=== PATIENT | female | born 1990 | race African-American/Black ===

== ENCOUNTER 2020-02-16 10:20 | Emergency (ER) | payer OTHER ==
[~2020-02-16] VITALS: Ht 165.1 cm; Wt 77.5 kg
[2020-02-16] MEDS ORDERED: PRENMIS3 PO (10:29)
[2020-02-16 11:34] LABS: BASO % 0.3 % (0.0-1.0); EOS % 0.3 % (0.0-3.0); HEMATOCRIT 36.9 % (36.0-47.0); HEMOGLOBIN 11.7 g/dl (12.0-15.5); LYMPH % 25.5 % (24.0-44.0); MEAN CORPUSCULAR HEMOGLOBIN 30.5 pg (27.0-33.0); MEAN CORPUSCULAR HGB CONC 31.7 g/dl (32.0-36.5); MEAN CORPUSCULAR VOLUME 96.1 fl (80.0-96.0); MONO # 0.9 10^3/uL (0.0-0.8); MONO % 11.2 % (0.0-5.0); NEUTROPHILS # 4.9 10^3/uL (1.5-8.5); NEUTROPHILS % 62.3 % (36.0-66.0); PLATELET COUNT, AUTOMATED 305 10^3/uL (150-450); RED BLOOD COUNT 3.84 10^6/uL (4.00-5.40); WHITE BLOOD COUNT 7.9 10^3/uL (4.0-10.0)
--- NOTE | 2020-02-16 12:26 | REP ---
INDICATION: RLQ pain, 6 weeks preg. COMPARISON: None. TECHNIQUE: Transabdominal and transvaginal scanning. FINDINGS: Transabdominal and transvaginal sonography demonstrates a intrauterine gestational sac in the fundal endometrium. No yolk sac or embryonic pole is seen. Decidual reaction is less than complete. There is hypoechoic material surrounding the sac. By mean sac size diameter of 7.1 mm this would correspond with a gestational age estimate of 5 weeks 2 days. There is moderate amount of free fluid in the cul-de-sac. Uterine dimensions are 9.1 x 5.8 x 6.2 cm. A normal right ovary is seen measuring 1.9 x 1.3 x 1.6 cm. Doppler flow is present in the right ovary, resistive index 0.52. The left ovary measures 4.0 x 2.2 x 3.0 cm. There is Doppler flow, resistive index 0.46. There is a 2.2 x 1.5 x 2.2 cm hypoechoic cystic area consistent with a hemorrhagic cyst or corpus luteum cyst. IMPRESSION: Small gestational sac within the uterine endometrium without evidence of pole or yolk sac. Five weeks 2 days size by mean sac size diameter but viability cannot be confirmed. There is some free fluid in the cul-de-sac. Clinical and possibly sonographic follow-up advised. <Electronically signed by Howard Mercado > 02/16/20 [id number]
[2020-02-16 12:37] LABS: ALBUMIN 3.9 GM/DL (3.2-5.2); ALT/SGPT 23 U/L (12-78); BILIRUBIN,DIRECT 0.1 MG/DL (0.0-0.2); BILIRUBIN,TOTAL 0.5 MG/DL (0.2-1.0); BLOOD UREA NITROGEN 9 MG/DL (7-18); CARBON DIOXIDE LEVEL 26 MEQ/L (21-32); CHLORIDE LEVEL 106 MEQ/L (98-107); CREATININE FOR GFR 0.63 MG/DL (0.55-1.30); GLOMERULAR FILTRATION RATE > 60.0 (>60); GLUCOSE, FASTING 71 MG/DL (70-100); HCG, SERUM QUANTITATIVE 4711 MIU/ML; LIPASE 68 U/L (73-393); POTASSIUM SERUM 4.1 MEQ/L (3.5-5.1); SODIUM LEVEL 139 MEQ/L (136-145); TOTAL PROTEIN 7.7 GM/DL (6.4-8.2)
[2020-02-16 14:33] VITALS: BP 113/57
== END 2020-02-16 15:02 | disposition left against medical advice (07) ==
LOC: M ED 10:20
DX: O99.891 Other specified diseases and conditions complicating pregnancy (principal); R10.31 Right lower quadrant pain; Z3A.01 Less than 8 weeks gestation of pregnancy

== ENCOUNTER → 2020-03-01 | Outpatient (CLI) | payer OTHER ==
[~2020-03-01] MED LIST: PRENMIS3 PO
--- NOTE | 2020-03-01 12:54 | REP ---
INDICATION: VIABILITY; RULE OUT ECTOPIC;UNKNOWN LINDA. COMPARISON: Comparison sonography February 16, 2020.. TECHNIQUE: Transabdominal and transvaginal scanning is performed. FINDINGS: Scanning demonstrates a single living intrauterine gestation today. The embryonic pole measures 9 mm in crown-rump length. This corresponds with a gestational age estimate is 6 weeks 6 days. heart rate is recorded at 147 beats per minute. There is a 2.3 cm complex cystic area in the left ovary consistent with corpus luteum. There is a 3.1 x 2.0 x 2.5 cm hypoechoic area inferior to the gestational sac which may be a subchorionic hemorrhage. No other finding. IMPRESSION: Viable single intrauterine gestation at 6 weeks 6 days by crown-rump length. LINDA by sonography October 19, 2020. 2.5 x 3.1 x 2.0 cm hyperechoic area inferior to the gestational sac may be a small subchorionic hemorrhage. A 2.3 cm left ovarian corpus luteum is seen. <Electronically signed by Howard Mercado > 03/01/20 [id number]
== END ==
LOC: M RAD 12:01
PROVIDERS: ATTEND Registered Nurse Maternal Newborn
DX: Z34.81 Encounter for supervision of other normal pregnancy, first trimester (principal); Z3A.01 Less than 8 weeks gestation of pregnancy

== ENCOUNTER 2020-08-15 09:00 | Emergency (ER) | payer OTHER ==
[~2020-08-15] VITALS: Ht 162.6 cm; Wt 87.1 kg
[2020-08-15] MEDS ORDERED: TRAZ-252 PO (09:08)
[2020-08-15 11:43] VITALS: BP 137/62
== END 2020-08-15 11:53 | disposition home or self-care (01) ==
LOC: M ED 09:00
DX: O99.343 Other mental disorders complicating pregnancy, third trimester (principal); Z3A.31 31 weeks gestation of pregnancy; Z79.899 Other long term (current) drug therapy; Z88.2 Allergy status to sulfonamides; Z88.8 Allergy status to other drugs, medicaments and biological substances

== ENCOUNTER 2020-10-02 09:38 | Inpatient (IN) | payer OTHER ==
[~2020-10-02] VITALS: Ht 165.1 cm; Wt 89.3 kg
[~2020-10-02 09:38] MED LIST changes: +TRAZ-252 PO
--- NOTE | 2020-10-02 10:41 | REP ---
INDICATION: DECREASED MOVEMENT COMPARISON: None. TECHNIQUE: Transabdominal obstetrical ultrasound with color Doppler evaluation. FINDINGS: Examination demonstrates a single live intrauterine in cephalic presentation. motion is identified by technologist. Placenta is noted posterior and grade 2 without evidence for placenta previa or abruption. Amniotic fluid volume is normal. Selected gestational age: 37 weeks 6 days with LINDA 10/17/2020. FHR equals 133 beats per minute. TIFFANIE: 7.7 cm (7.3-24.0) Biophysical profile score: 8/8 Umbilical artery SD ratio: 1.97 (1.55-3.37) IMPRESSION: 1. Amniotic fluid volume is lower limits of normal. 2. Biophysical profile score 8/8 <Electronically signed by Miguel Swartz > 10/02/20 [id number]
[2020-10-02] MEDS ORDERED: BICITRA 30ML SOLN UDC PO ONE (12:40)
[2020-10-02] MEDS ORDERED: ceFAZolin SOD 2 GM in IV 1 EA IV ONE (12:40)
[2020-10-02] MEDS ORDERED: LR 1,000 ML IV ONE ×2 (12:40→22:15)
[2020-10-02] MEDS ORDERED: ACETAMINOPHEN 650 MG SUPP PR SCH (12:50)
[2020-10-02] MEDS ORDERED: BUPIVACAINE HCL 0.25% 10ML VIAL SC SCH (12:50)
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
[2020-10-02 13:03] VITALS: BP 107/64
[2020-10-02 13:15] LABS: HEMATOCRIT 38.1 % (36.0-47.0); HEMOGLOBIN 12.2 g/dl (12.0-15.5); MEAN CORPUSCULAR HEMOGLOBIN 29.8 pg (27.0-33.0); MEAN CORPUSCULAR VOLUME 93.2 fl (80.0-96.0); PLATELET COUNT, AUTOMATED 229 10^3/uL (150-450); RED BLOOD COUNT 4.09 10^6/uL (4.00-5.40); WHITE BLOOD COUNT 7.6 10^3/uL (4.0-10.0)
[2020-10-02] MEDS ORDERED: IRON27TA2 PO (13:21)
[2020-10-02] MEDS ORDERED: LR 1,000 ML IV SCH ×2 (13:40→19:05)
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
[2020-10-02] MEDS ORDERED: BUPIVACAINE HCL 0.25% 10ML VIAL SC ONE (16:05)
[2020-10-02] MEDS ORDERED: ACETAMINOPHEN 650 MG SUPP PR ONE (16:05)
[2020-10-02] MEDS ORDERED: METOCLOPRAMIDE INJ 10MG/2ML VIAL (J2765 PER 1) IV PRN (17:16)
[2020-10-02] MEDS ORDERED: NALOXONE INJ 0.4MG/1ML VIAL (J2310 PER 1MG) IV PRN ×2 (17:16)
[2020-10-02] MEDS ORDERED: ONDANSETRON 4MG/2ML VIAL IV PRN ×2 (17:16→19:05)
[2020-10-02] MEDS ORDERED: NALBUPHINE HCL 10 MG/ML AMP (J2300) IV PRN ×2 (17:16→19:05)
[2020-10-02] MEDS ORDERED: OXYTOCIN 30 UNITS IN 0.9% NaCl 500ML IV BAG (J2590) As Ordered ONE ×2 (17:39→18:46)
[2020-10-02] MEDS ORDERED: METOCLOPRAMIDE INJ 10MG/2ML VIAL (J2765 PER 1) As Ordered ONE (17:39)
[2020-10-02] MEDS ORDERED: PHENYLephrine 500MCG 5ML (100MCG/ML) SYRINGE As Ordered ONE (17:39)
[2020-10-02] MEDS ORDERED: MORPHINE PRES-FREE INJ 10 MG/10 ML VIAL (J2274) As Ordered ONE (17:39)
[2020-10-02] MEDS ORDERED: ONDANSETRON 4MG/2ML VIAL As Ordered ONE (17:39)
[2020-10-02] MEDS ORDERED: dexameTHASONE 4 MG/ML 1ML VIAL (J1100 PER 1MG) As Ordered ONE (17:39)
[2020-10-02] MEDS ORDERED: ePHEDrine SULFATE 25 MG/5 ML(5MG/ML) SYRINGE As Ordered ONE (17:39)
[2020-10-02] MEDS ORDERED: KETOROLAC 60MG 2ML VIAL As Ordered ONE ×2 (17:39→17:50)
[2020-10-02] MEDS ORDERED: OXYTOCIN INJ 10 UNITS/ML VIAL (J2590) As Ordered ONE (17:42)
[2020-10-02] MEDS ORDERED: ACETAMINOPHEN 1000MG 100ML IV BTL (OFIRMEV) (J0131 PER 10MG) As Ordered ONE (17:48)
[2020-10-02 18:09] LABS: CORD GAS ABE A -7.4; CORD GAS ABE V -8.6; CORD GAS HCO3 A 23.8 MEQ/L; CORD GAS HCO3 V 21.3 MEQ/L; CORD GAS O2 SAT V 24.7 %; CORD GAS PCO2 A 77.1 mmHg; CORD GAS PCO2 V 62.6 mmHg; CORD GAS PH A 7.108 UNITS; CORD GAS PH V 7.149 UNITS; CORD GAS PO2 A 14.9 mmHg; CORD GAS PO2 V 17.6 mmHg; CORD GAS SBC A 16.8 MEQ/L; CORD GAS SBC V 16.1 MEQ/L; CORD GAS TCO2 A 26.2 MEQ/L; CORD GAS TCO2 V 23.2 MEQ/L
[2020-10-02] MEDS ORDERED: fentaNYL 100 MCG/2 ML INJECTION (J3010) IV PRN (19:05)
[2020-10-02] MEDS ORDERED: oxyCODONE 5MG TAB PO PRN (19:05)
[2020-10-02] MEDS: LR 1,000 ML IV SCH (19:20)
[2020-10-02] MEDS ORDERED: RHOGAM 300 MCG (1500 IU) INJ (J2790) IM SCH (19:20)
[2020-10-02] MEDS ORDERED: SIMETHICONE 80MG CHEW TAB PO PRN (19:20)
[2020-10-02] MEDS ORDERED: MEASLES,MUMPS,RUBELLA VACCINE INJ (MMR-II) (90707) SC SCH (19:20)
[2020-10-02] MEDS ORDERED: OXYTOCIN DRIP 30 UNITS in IV 1 EA IV SCH (19:25)
[2020-10-02 20:15] VITALS: BP 123/79
[2020-10-02 20:45] VITALS: BP 121/76
[2020-10-02 21:15] VITALS: BP 125/71
[2020-10-02 22:15] VITALS: BP 122/62
[2020-10-02] MEDS: diphenhydrAMINE 50MG/ML VIAL (J1200) IV PRN (22:22)
--- NOTE | 2020-10-02 22:55 | IPN ---
PROGRESS NOTE DATE: 10/02/2020 SUBJECTIVE: This patient requested circumcision of her male infant. After discussing the risks and benefits of circumcision, the medical, the nonmedical indications, the penile block and aftercare, expressed understanding of penile block, aftercare and bleeding, signed a consent form. All questions were answered. A 20-minute discussion. We await the clearance by the admissions evaluator.
[2020-10-02 23:15] VITALS: BP 118/75
[2020-10-02] MEDS: KETOROLAC 30 MG/ML 1ML VIAL IV SCH (23:41)
[2020-10-03] VITALS (7 sets, daily range): BP systolic 105–127; BP diastolic 58–75
[2020-10-03] MEDS: LR 1,000 ML IV SCH ×4 (01:48→19:20)
[2020-10-03] MEDS: KETOROLAC 30 MG/ML 1ML VIAL IV SCH ×2 (05:42→12:24)
[2020-10-03] MEDS: PRENATAL VITAMINS CHEWABLE TABLET PO SCH (07:50)
[2020-10-03] MEDS: diphenhydrAMINE 50MG/ML VIAL (J1200) IV PRN (07:51)
[2020-10-03 08:20] LABS: HEMATOCRIT 31.8 % (36.0-47.0); HEMOGLOBIN 10.3 g/dl (12.0-15.5); MEAN CORPUSCULAR HGB CONC 32.4 g/dl (32.0-36.5); MEAN CORPUSCULAR VOLUME 95.8 fl (80.0-96.0); PLATELET COUNT, AUTOMATED 203 10^3/uL (150-450); RED BLOOD COUNT 3.32 10^6/uL (4.00-5.40); WHITE BLOOD COUNT 13.2 10^3/uL (4.0-10.0)
--- NOTE | 2020-10-03 11:20 | IPN ---
PROGRESS NOTE DATE: 10/03/2020 SUBJECTIVE: This lady is a 29-year-old 3, now para 3 who was admitted because of a decreased movement of 48 hours, oligohydramnios, and a low threshold BPP of 8 out of 8. She had a repeat section and was noted to have a uterine dehiscence throughout the entire lower incision site. On her first postop day we noticed that diuresis was occurring. She had 2400 mL loss of urine and then subsequently did not have the urge to void. Bladder scan found her to have over 800 mL in her bladder. Therefore the Damon catheter was replaced and will be clamped and drained for 24 hours in order to initiate the sensation of voiding. The rest of the examination was unremarkable. Her incision is clean and dry. Uterus 2 below. Lochia is moderate. Four quadrant bowel sounds are noted. She is mobilizing, breast feeding, and is anxious to have a shower. OBJECTIVE: Vital signs: Her blood pressure this morning is 125/62, respirations are 20, pulse is 71 and temperature is 97.7. Her admitting hemoglobin was 12.2, hematocrit 38.1, and platelets 229. Repeat hemoglobin is in the process. ASSESSMENT: In summary, I have a term gestation, repeat section with urinary retention at the present time and will be managed accordingly. All questions were answered to the patient. The translation in Wallisian was done by myself and both her and her mother expressed understanding of the process of day one. cc: [facility]
--- NOTE | 2020-10-03 12:55 | RO ---
OPERATIVE NOTE DATE OF OPERATION: 10/02/2020 PREOPERATIVE DIAGNOSES: 1. Repeat section times three. 2. Decreased movement. 3. Oligohydramnios. 4. Minimal biophysical profile of 8/8. POSTOPERATIVE DIAGNOSES: 1. Repeat section times three. 2. Decreased movement. 3. Oligohydramnios. 4. Minimal biophysical profile of 8/8. 5. Uterine window. PROCEDURE: Repeat section. SURGEON: Dr. Egan SUPPORT ANALYST: Dr. Sepulveda for extraction, retraction, and visualization, without which the procedure could not be completed. ESTIMATED BLOOD LOSS: 400 mL. After adequate time, prepped and draped in the supine position, Damon catheter in the bladder draining clear urine, acetaminophen suppository 1300 mg per rectum, antibiotics appropriately preoperatively, sequentials in place, a Pfannenstiel incision was made through the previous Pfannenstiel incision two fingerbreadths above the symphysis pubis. There was quite extensive amount of scarring and adhesions. We got into the peritoneal cavity. We noticed immediately that there was very thin lower uterine section, a uterine window, all along the previous section scar. We could actually see some amniotic fluid and hair through it. A Mobius was placed, and basically a very thin layer of peritoneum was removed. An artificial rupture of membranes (ARM) was done, and moderate amount of fluid, mostly blood, was retrieved, and we delivered a live- male infant weighing 7 pounds 6 ounces, 3340 grams, scores of 8 and 8 at one and five minutes, respectively. Arterial and venous pH were performed. The baby was passed off to the nurse. Arterial and venous pH and cord bloods were taken. A 3-vessel cord. The placenta delivered manually complete. Sweeping out the internal aspect of the uterus, no evidence of membranes or tissue was noted. Very thin lower uterine segment was noted. With the uterus enrrique well down on Pitocin, the lower segment was oversewn in the usual fashion with continuous Monocryl for the first layer and imbricating the second layer in order to reinforce that layer, and some peritoneum was surfaced over that in a second repair incision. With the instrument and pad count correct, both ovaries and tubes appeared to be normal. The Mobius was removed. The abdomen was then closed, running stitches for the perineum, same for the fascia. Interrupted for subcutaneous and Monocryl 4-0 for the skin. Marcaine 0.25% 10 mL to the skin site, and a Mepore dressing was placed. The uterus continued to be contracted well down, and the patient was sent to recovery in good condition.
[2020-10-03] MEDS ORDERED: IBUPROFEN 600MG TAB PO PRN (18:00)
[2020-10-03] MEDS: PERCOCET 5MG/325MG TAB PO PRN (21:26)
[2020-10-04 02:03] VITALS: BP 131/70
[2020-10-04] MEDS: PERCOCET 5MG/325MG TAB PO PRN ×2 (02:09→08:01)
[2020-10-04] MEDS: LR 1,000 ML IV SCH ×2 (03:20→11:03)
[2020-10-04 06:11] VITALS: BP 118/72
--- NOTE | 2020-10-04 06:59 | IPNPDOC ---
Progress Note Date of Service: Oct 04, 2020 Day#: 2 Progress Note SUBJECT: Mrs. Lucia Gonzalez is a 29yo G3 now P3003 now PPD#2 s/p an uncomplicated Repeat Low Transverse Section (RLTCS) productive of a male with APGARS 8/8. This morning, Mrs. Gonzalez is doing well. She reports that her pain is well controlled; her lochia is diminishing; she is ambulating without difficulty; is voiding via Damon catheter; and is not passing flatus. She is breast & bottle feeding and considering OCPs for contraception. Her male infant had a circumcision yesterday. OBJECTIVE: VITAL SIGNS: Within normal limits, afebrile. GEN: Alert and oriented times three. PULM: Breath sounds clear to auscultation. CV: Heart rate: Regular rate and rhythm, no murmurs, rubs or gallops. Abdomen: Fundus firm at U-2. Soft, NTTP, incision c/d/i with dressing. ASSESSMENT: Mrs. Gonzalez is a 29yo G3 now P3003 status post uncomplicated RLTCS, delivered on 02 Oct 2020, who is doing well on day 2. Vitals within normal limits, afebrile, hemodynamically stable with no evidence of infection. Will d/c Damon catheter with 4-hour Due-To-Void. PLAN: 1. Tylenol and Motrin for pain. 2. Remove Damon catheter with 4-hour Due-To-Void 3. Encourage breast feeding and ambulation. 4. OCPs for contraception. - To be started at 6-week PP visit 5. Discharge once voiding spontaneously. 6. 2-week incision check 7. Routine PP visit in 6 weeks in clinic. 8. Discussed return precautions at length. VS, I&O, 24H, Fishbone Vital Signs/I&O Vital Signs Date Time Temp Pulse Resp B/P (MAP) Pulse Ox O2 Delivery O2 Flow Rate FiO2 10/04/20 06:11 97.4 79 18 118/72 (87) 97 10/03/20 22:01 Room Air I&O- Last 24 Hours up to 6 AM 10/04/20 06:00 Intake Total 2605 ml Output Total 6225 ml Balance -3620 ml Laboratory Data 24H LABS Laboratory Tests 2 10/03/20 07:34: Nucleated Red Blood Cells % (auto) 0.0 CBC/BMP Laboratory Tests 10/03/20 07:34 PAULA ENGEL M.D. Oct 04, 2020 06:58
[2020-10-04] MEDS: PRENATAL VITAMINS CHEWABLE TABLET PO SCH (08:00)
[2020-10-04 09:55] VITALS: BP 120/79
== END 2020-10-04 11:33 | disposition home or self-care (01) | DRG 773 ==
LOC: M RAD 09:38 → M LDI 11:13 → M OBS 20:11
PROVIDERS: ADMIT Obstetrics & Gynecology; ATTEND Obstetrics & Gynecology
PROC: 10D00Z1 Extraction of Products of Conception, Low, Open Approach (ICD-10-PCS; principal; 2020-10-02 17:00)
DX: O41.03X0 Oligohydramnios, third trimester, not applicable or unspecified (principal); O36.8130 Decreased fetal movements, third trimester, not applicable or unspecified; Z3A.39 39 weeks gestation of pregnancy; O34.211 Maternal care for low transverse scar from previous cesarean delivery; Z37.0 Single live birth; R33.9 Retention of urine, unspecified; O99.892 Other specified diseases and conditions complicating childbirth

== ENCOUNTER → 2021-03-19 | Outpatient (CLI) | payer OTHER ==
[~2021-03-19] MED LIST changes: +IRON27TA2 PO
[2021-03-19 19:49] LABS: PLATELET COUNT, AUTOMATED 275 10^3/uL (150-450)
[2021-03-19 20:05] LABS: INR 0.99; PARTIAL THROMBOPLASTIN TIME 31.5 SECONDS (25.9-37.0); PROTHROMBIN TIME 13.5 SECONDS (12.7-14.5)
[2021-03-19 20:19] LABS: HCG, SERUM QUALITATIVE NEGATIVE (NEGATIVE)
== END ==
LOC: M WUC 15:18
PROVIDERS: ATTEND Physical Medicine & Rehabilitation
DX: Z01.812 Encounter for preprocedural laboratory examination (principal)

== ENCOUNTER → 2021-04-01 | Outpatient (REF) | LOC: M PLALAB 08:54 | PROVIDERS: ATTEND Internal Medicine | DX: R06.02 Shortness of breath (principal); R07.9 Chest pain, unspecified ==